=== PATIENT | female | born 1970 | race Caucasian/White ===

== ENCOUNTER 2016-10-09 16:10 | Emergency (ER) | payer BC ==
--- NOTE | 2016-10-09 16:16 | PDOC ---
History of Present Illness - General History Source: Patient Exam Limitations: No Limitations - History of Present Illness Initial Comments: 10/09/16 16:28 The patient is a 45 year old female presenting with her , with a significant past medical history of fibromyalgia, who presents to the emergency department with back pain for the past week. She describes her back pain as moderate, localized in the bilateral shoulder blades. She denies any radiation. She states that certain movements (turning neck) and breathing exacerbates the pain. She notes that she saw her PMD yesterday who ordered an MRI of the neck, scheduled tomorrow. Her PMD also prescribed her a muscle relaxant that has not been relieving her symptoms. She denies any recent trauma, sick contacts or recent travel. She reports that she has been taking Tramadol 3x a day for a couple of years. The patient denies chest pain, shortness of breath, headache and dizziness. Allergies: None Past surgical history: None reported Social history: No alcohol, tobacco or drug use reported <Harvey Herron - Last Filed: 10/09/16 16:31> <Ivette Clifton - Last Filed: 10/10/16 11:15> - General Chief Complaint: Back Pain Stated Complaint: BACK PAIN Time Seen by Provider: 10/09/16 16:15 Past History <Harvey Herron - Last Filed: 10/09/16 16:31> <Ivette Clifton - Last Filed: 10/10/16 11:15> - Past Medical History Allergies/Adverse Reactions: Allergies Allergy/AdvReac Type Severity Reaction Status Date / Time No Known Allergies Allergy Verified 10/09/16 16:12 Home Medications: Ambulatory Orders Cyclobenzaprine HCl [Flexeril 10 mg] 10 mg PO HS 10/09/16 Methocarbamol [Robaxin -] 500 mg PO BID PRN #14 tablet 10/09/16 Nabumetone 500 mg PO BID 10/09/16 Oxycodone HCl/Acetaminophen [Percocet 5-325 mg Tablet] 1 - 2 tab PO Q6H PRN #20 tab MDD 8 tabs 10/09/16 Tramadol HCl/Acetaminophen [Tramadol-Acetaminophn 37.5-325] 1 each PO TID Review of Systems - Review of Systems Able to Perform ROS?: Yes Comments:: 10/09/16 16:27 GENERAL/CONSTITUTIONAL: No fever or chills. No weakness. MUSCULOSKELETAL: +Upper back pain. No joint or muscle swelling or pain. SKIN: No rash NEUROLOGIC: No headache, vertigo, loss of consciousness, or change in strength/ sensation. <Harvey Herron - Last Filed: 10/09/16 16:31> *Physical Exam - Vital Signs Last Vital Signs Temp Pulse Resp BP Pulse Ox 98.1 F 89 18 128/80 100 10/09/16 16:10 10/09/16 16:10 10/09/16 16:10 10/09/16 16:10 10/09/16 16:10 - Physical Exam Comments: 10/09/16 16:28 GENERAL: Awake, alert, and fully oriented, in no acute distress HEAD: No signs of trauma, normocephalic, atraumatic NECK: Normal ROM, supple, no lymphadenopathy, JVD, or masses EXTREMITIES: Normal inspection, Normal range of motion, no edema. No clubbing or cyanosis. NEUROLOGICAL: Cranial nerves II through XII grossly intact. Normal speech, normal gait, no focal sensorimotor deficits <Harvey Herron - Last Filed: 10/09/16 16:31> Medical Decision Making - Medical Decision Making Pain improved with percocet. Patient is on tramadol at baseline. We discussed using percocet for short period of time while waiting for improvement. She has MRI tomorrow morning to further evaluate, priority is to make it to that appointment. Pain is improved at this point, she can lay back comfortably and ambulate. <Ivette Clifton - Last Filed: 10/10/16 11:15> *DC/Admit/Observation/Transfer - Attestations Scribe Attestion: 10/09/16 16:27 Documentation prepared by Harvey Herron, acting as medical staff coordinator for Ivette Clifton MD <Harvey Herron - Last Filed: 10/09/16 16:31> - Discharge Dispostion Admit: No <Ivette Clifton - Last Filed: 10/10/16 11:15> Diagnosis at time of Disposition: Neck pain Shoulder pain Qualifiers: Laterality: left Chronicity: acute Qualified Code(s): M25.512 - Pain in left shoulder - Discharge Dispostion Disposition: HOME Condition at time of disposition: Improved - Prescriptions Prescriptions: Oxycodone HCl/Acetaminophen [Percocet 5-325 mg Tablet] 1 - 2 tab PO Q6H PRN #20 tab MDD 8 tabs PRN Reason: Severe Pain Methocarbamol [Robaxin -] 500 mg PO BID PRN #14 tablet PRN Reason: Muscle Spasms - Patient Instructions Printed Discharge Instructions: DI for Shoulder Pain Additional Instructions: CHANGE MEDICINES FOLLOWS- INSTEAD OF NAPROSYN, TAKE IBUPROFEN 600 MG EVERY 8 HOURS NEEDED FOR PAIN TAKE EITHER TRAMADOL OR PERCOCET, DO NOT COMBINE THE TWO. INSTEAD OF CYCLOBENZAPRINE, TAKE ROBAXIN TWICE A DAY FOR MUSCLE RELAXANT.
[2016-10-09 16:24] VITALS: BP 128/80; PULSE 89; TEMP 98.1; BMI 21.2
[2016-10-09] MEDS ORDERED: OXYCODONE/APAP 5/325MG COMBO TABLET PO ONE ×2 (16:33→17:50)
[2016-10-09] MEDS ORDERED: METHOCARBAMOL 500 MG TABLET PO ONE (16:33)
[2016-10-09] MEDS ORDERED: OXYCODONE/APAP 5/325MG COMBO TABLET ONE ×2 (16:37→18:14)
== END 2016-10-09 18:54 | disposition home or self-care (01) ==
LOC: FER 16:10
DX: M25.512 Pain in left shoulder (principal); M54.2 Cervicalgia; M79.7 Fibromyalgia
CPT/HCPCS: 71020-TC; 84703; 99283-25